=== PATIENT | female | born 2000 | race Hispanic/Latino ===

== ENCOUNTER 2023-12-13 09:26 | Day surgery (SDC) | payer OTHER ==
[~2023-12-13 09:26] MED LIST: Iron Sucrose Complex 500 MG in Sodium Chloride 0.9% 250 ML 250 ML IVPB SCH
[2023-12-13] MEDS ORDERED: diphenhydrAMINE 25 MG CAP ONE (09:33)
[2023-12-13] MEDS ORDERED: Acetaminophen 325 MG TAB ONE (09:34)
[2023-12-13] MEDS: Acetaminophen 325 MG TAB PO PRN (09:36)
[2023-12-13] MEDS: diphenhydrAMINE 25 MG CAP PO PRN (09:36)
[2023-12-13] MEDS: Ferumoxytol (NON ERSD) 510 MG in Sodium Chloride 0.9% 250 ML 150 ML IVPB SCH (10:09)
[2023-12-13 13:30] VITALS: BP 110/63; TEMP 97.9
== END 2023-12-13 13:48 | disposition home or self-care (01) ==
LOC: ONC/OP 09:26
PROVIDERS: ATTEND Family Medicine
DX: D50.9 Iron deficiency anemia, unspecified (principal)
CPT/HCPCS: 96365; J7050; Q0138